=== PATIENT | female | born 1940 | race Caucasian/White ===

== ENCOUNTER 2023-12-25 16:29 | Observation (INO) | payer MEDICARE, SELFPAY ==
[2023-12-25 16:29] VITALS: BP 117/60; PULSE 75; RESP 16; TEMP 36.6; O2SAT 90; BMI 32.2
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
[2023-12-25] MEDS: Diphth,Pertuss(Acell),Tet Vac 0.5 ML Vial IM (16:44)
[2023-12-25] MEDS: 0.9% Normal Saline (1000mL) 1,000 ML 1000 ML IV (16:45)
[2023-12-25] MEDS: Ondansetron 4 MG/2 ML Vial IV (16:49)
[2023-12-25] MEDS: Morphine 4 MG/ML Syringe IV (16:49)
[2023-12-25 17:00] LABS: Absolute Lymphocyte Count 2.51 X10^3/uL (0.83-4.51); Absolute Neutrophil Count 7.8 X10^3/uL (2.0-7.7); Basophil# 0.15 X10^3/uL; Basophil% 1.3 % (0-1); Eosinophil# 0.32 X10^3/uL; Eosinophils% 2.8 % (0-5); Hematocrit 42.2 % (37-47); Lymphocyte # 2.51 X10^3/ul (0.83-4.51); Lymphocyte % 21.7 % (19-41); Mean Corp Hgb Conc 33.2 g/dL (32-36); Mean Corpuscular Hgb 30.8 pg (27.0-32.0); Mean Platelet Vol. 10.8 fl (6.2-12.0); Monocyte% 5.2 % (0-10); NRBC Flagged by Analyzer 0 % (0-5); Neutrophil # 7.84 X10^3/uL (2.7-7.7); Neutrophil % 67.8 % (47-70); Platelet Count 209 K/mm3 (150-450); RBC Distribution Width CV 12.9 % (11.6-14.6); RBC Distribution Width SD 43.8 fl (35.1-43.9); Red Blood Count 4.54 M/mm3 (4.2-5.4); White Blood Count 11.6 K/mm3 (4.4-11.0)
[2023-12-25 17:14] LABS: AST(SGOT) 109 U/L (15-37); Alanine Aminotransfer ALT/SGPT 83 U/L (13-56); Albumin, Serum 3.4 g/dL (3.2-5.0); Alkaline Phosphatase 134 U/L (45-117); Anion Gap 9 (5-15); BUN 20 mg/dL (7-18); BUN/Creat Ratio 15.6 RATIO (10-20); Bilirubin, Direct 0.22 mg/dL (0.00-0.30); Calcium,Total 9.1 mg/dL (8.5-10.1); Chloride 108 mmol/L (98-107); Creatinine, Serum 1.28 mg/dL (0.55-1.02); EST Glomerular Filtration Rate 42 mL/min (>60); Est Glom Filt Rate - Afr Amer 51 mL/min (>60); Estimated Creatinine Clearance 35.82 ml/min; Globulin 3.3 g/dL (2.2-4.2); Glucose 128 mg/dL (74-106); Lipase 90 U/L (13-75); Potassium 3.6 mmol/L (3.5-5.1); Protein, Total 6.7 g/dL (6.4-8.2); Sodium Level 142 mmol/L (136-145); Troponin-I HS < 3 pg/mL (3.0-54.0)
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
[2023-12-25 17:29] VITALS: BP 112/73; PULSE 101; RESP 20; O2SAT 94
[2023-12-25 19:00] VITALS: BP 133/67; PULSE 92; RESP 14; O2SAT 93
[2023-12-25 19:15] LABS: Bacteria 0 SEEN /hpf (None Seen); Mucous, Urine 0 SEEN /hpf (<or=2+); Squamous Epithelial Cells - UA 0 SEEN /hpf (5-10)
[2023-12-25 19:17] LABS: Color, Urine Yellow (Yellow); Glucose, Dipstick Normal (Normal); Ketone-Dipstick Negative (Negative); Leukocyte Esterase-Dipstick Negative /ul (Negative); Nitrite-Dipstick Negative (Negative); Occult Blood-Urine 50 /ul (Negative); Protein-Dipstick 15 mg/dl (Negative); Urine Bilirubin Dipstick Negative (Negative); Urine Clarity Clear (Clear); Urine Urobilinogen Normal (Normal); Urine pH 6.5 (5.0 - 8.0)
[2023-12-25 19:25] LABS: Red Blood Cells-Urine 0-5 SEEN /hpf (0-5); White Blood Cells 0-5 SEEN /hpf (0-5)
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
[2023-12-25 20:00] VITALS: BP 130/61; PULSE 90; RESP 16; O2SAT 95
[2023-12-25 20:02] VITALS: BP 160/61; PULSE 87; RESP 17; TEMP 36.3; O2SAT 998
[2023-12-25 21:08] VITALS: BMI 30.2
[2023-12-25 21:30] VITALS: BP 113/79; PULSE 86; RESP 18; TEMP 36.7; O2SAT 93
[2023-12-25] MEDS: Acetaminophen 325 MG Tablet 650 MG PO (21:41)
[2023-12-25] MEDS: 0.9% Saline Lock 10 ML Syringe IV (21:42)
[2023-12-25] MEDS: MELATONIN 3 MG TABLET PO (21:42)
[2023-12-25] MEDS: Nystatin Powder 15gm Bottle 1 APPLIC TOPICAL (22:13)
[2023-12-26 03:22] VITALS: BP 96/54; PULSE 78; RESP 18; TEMP 37; O2SAT 96
[2023-12-26] MEDS: Acetaminophen 325 MG Tablet 650 MG PO ×3 (03:25→18:23)
[2023-12-26 06:10] LABS: Hematocrit 37.3 % (37-47); Hemoglobin 12.2 g/dL (12.0-15.0); Mean Corp Hgb Conc 32.7 g/dL (32-36); Mean Corpuscular Hgb 30.6 pg (27.0-32.0); Mean Corpuscular Volume 93.5 fL (81-99); Mean Platelet Vol. 11.1 fl (6.2-12.0); Platelet Count 162 K/mm3 (150-450); RBC Distribution Width CV 12.8 % (11.6-14.6); RBC Distribution Width SD 44.1 fl (35.1-43.9); Red Blood Count 3.99 M/mm3 (4.2-5.4); White Blood Count 9.4 K/mm3 (4.4-11.0)
[2023-12-26 06:38] LABS: ALB/GLOB Ratio 1.1 RATIO (0.9-2.4); AST(SGOT) 53 U/L (15-37); Alanine Aminotransfer ALT/SGPT 64 U/L (13-56); Albumin, Serum 3.2 g/dL (3.2-5.0); Alkaline Phosphatase 112 U/L (45-117); Anion Gap 6 (5-15); BUN 26 mg/dL (7-18); BUN/Creat Ratio 27.7 RATIO (10-20); Calcium,Total 8.5 mg/dL (8.5-10.1); Chloride 111 mmol/L (98-107); Creatinine, Serum 0.94 mg/dL (0.55-1.02); EST Glomerular Filtration Rate 60 mL/min (>60); Est Glom Filt Rate - Afr Amer 73 mL/min (>60); Estimated Creatinine Clearance 38.92 ml/min; Globulin 2.8 g/dL (2.2-4.2); Glucose 117 mg/dL (74-106); Sodium Level 140 mmol/L (136-145)
[2023-12-26] MEDS: Levothyroxine 50 MCG Tablet PO (06:48)
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
[2023-12-26 07:47] VITALS: O2SAT 97
[2023-12-26] MEDS: Atorvastatin Calcium 10 MG Tablet PO (09:17)
[2023-12-26] MEDS: Enoxaparin 40 MG/0.4 ML Syringe SC (09:17)
[2023-12-26] MEDS: Nystatin Powder 15gm Bottle 1 APPLIC TOPICAL ×2 (09:17→22:34)
[2023-12-26 09:22] VITALS: BP 112/75; PULSE 70; RESP 18; TEMP 37; O2SAT 98
--- NOTE | 2023-12-26 11:22 | CASEMGMT ---
Social Work A list of chcf facilities was created in [facility] of facilities in network w/pt's insurance, in pt's preferred geographic area, complete w/quality and resource use data to be given to pt in event pt needs SNF. ALVINA Bowers
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
--- NOTE | 2023-12-26 12:57 | CASEMGMT ---
Met with pt to complete DIMAS form. DIMAS form explained to pt at this time who voiced understanding and signed form. Original form placed in pt?s chart and copy provided to the pt. Stefano Esposito RN CM
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
[2023-12-26] MEDS: Ciprofloxacin 0.3% 2.5ml Bottle 2 DRP EACH EYE ×3 (13:57→22:35)
[2023-12-26 14:38] VITALS: BP 114/65; PULSE 70; RESP 18; TEMP 36.3; O2SAT 98
[2023-12-26 22:32] VITALS: BP 125/81; PULSE 74; RESP 16; TEMP 36.8; O2SAT 95
[2023-12-26] MEDS: Loratadine 10 MG Tablet PO (22:34)
[2023-12-26] MEDS: MELATONIN 3 MG TABLET PO (22:40)
[2023-12-27] MEDS: Ciprofloxacin 0.3% 2.5ml Bottle 2 DRP EACH EYE ×3 (02:47→10:46)
[2023-12-27] MEDS: Acetaminophen 325 MG Tablet 650 MG PO ×2 (02:48→10:43)
[2023-12-27 02:53] VITALS: BP 137/79; PULSE 80; RESP 20; TEMP 36.6; O2SAT 96
[2023-12-27] MEDS: Levothyroxine 50 MCG Tablet PO (06:08)
[2023-12-27 06:50] VITALS: O2SAT 93
[2023-12-27 08:08] VITALS: BP 136/86; PULSE 74; RESP 18; TEMP 37.1; O2SAT 96
[2023-12-27] MEDS: Atorvastatin Calcium 10 MG Tablet PO (10:45)
[2023-12-27] MEDS: Nystatin Powder 15gm Bottle 1 APPLIC TOPICAL (10:45)
[2023-12-27] MEDS: Enoxaparin 40 MG/0.4 ML Syringe SC (10:45)
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
[2023-12-27 13:29] VITALS: BP 134/83; PULSE 74; RESP 18; TEMP 36.9; O2SAT 95
== END 2023-12-27 13:34 | disposition home or self-care (01) ==
LOC: ED 20:30 → MS3 20:35
PROVIDERS: Admitting Provider Hospitalist; Emergency Provider Emergency Medicine; PCP Family Medicine; Visit Provider Internal Medicine
DX: S02.2XXA Fracture of nasal bones, initial encounter for closed fracture (principal); H35.3210 Exudative age-related macular degeneration, right eye, stage unspecified; R53.81 Other malaise; E78.5 Hyperlipidemia, unspecified; E66.9 Obesity, unspecified; R79.89 Other specified abnormal findings of blood chemistry; R53.1 Weakness; E03.9 Hypothyroidism, unspecified; I10 Essential (primary) hypertension; H91.90 Unspecified hearing loss, unspecified ear; Z68.30 Body mass index [BMI] 30.0-30.9, adult; S06.0X0A Concussion without loss of consciousness, initial encounter; S39.012A Strain of muscle, fascia and tendon of lower back, initial encounter; V43.63XA Car passenger injured in collision with pick-up truck in traffic accident, initial encounter; Y92.410 Unspecified street and highway as the place of occurrence of the external cause; S41.111A Laceration without foreign body of right upper arm, initial encounter; S81.812A Laceration without foreign body, left lower leg, initial encounter; Z79.899 Other long term (current) drug therapy; Z79.890 Hormone replacement therapy; Z23 Encounter for immunization
CPT/HCPCS: 70450; 70486; 71260; 72125; 73080; 73590; 74177; 80048; 80053; 80076; 81001; 83690; 84484; 85025; 85027; 90715; 94668; 96361; 96372; 96374; 96375; 97162; 97166; 97535; 99221; 99285; J7030; Q9967; A4216; G0378; J2405